=== PATIENT | female | born 1975 | race African-American/Black ===

== ENCOUNTER 2017-05-03 11:25 | Outpatient (CLI) | payer BC ==
[2011-06-30 11:27] VITALS: BMI 30.1
== END 2017-05-03 11:39 ==
LOC: D.MAMMO 11:25
DX: Z12.31 Encounter for screening mammogram for malignant neoplasm of breast (principal)

== ENCOUNTER 2018-05-05 08:00 | Outpatient (CLI) | payer BC ==
[2011-06-30 11:27] VITALS: BMI 30.1
== END 2018-05-05 09:00 | disposition home or self-care (01) ==
LOC: D.MAMMO 08:00
DX: Z12.31 Encounter for screening mammogram for malignant neoplasm of breast (principal)

== ENCOUNTER 2019-06-06 09:00 | Outpatient (CLI) | payer BC ==
[2011-06-30 11:27] VITALS: BMI 30.1
== END 2019-06-06 10:00 | disposition home or self-care (01) ==
LOC: D.MAMMO 09:00
PROVIDERS: ATTEND Obstetrics & Gynecology
DX: Z12.31 Encounter for screening mammogram for malignant neoplasm of breast (principal)

== ENCOUNTER 2020-07-22 13:00 | Outpatient (CLI) | payer BC ==
[2011-06-30 11:27] VITALS: BMI 30.1
== END 2020-07-22 13:30 | disposition home or self-care (01) ==
LOC: D.MAMMO 13:00
PROVIDERS: ATTEND Obstetrics & Gynecology
DX: Z12.31 Encounter for screening mammogram for malignant neoplasm of breast (principal)